=== PATIENT | male | born 1950 | race Caucasian/White ===

== ENCOUNTER 2017-07-24 08:10 | Inpatient (IN) | payer MEDICARE, BC ==
[~2017-07-24] VITALS: Ht 177.8 cm; Wt 87.7 kg
[~2017-07-24 08:10] MED LIST: ASPI-1265 PO; HCTZ; LISI-222 PO; LOP25T PO; ROSU5TAB4 PO
[2017-07-24] MEDS ORDERED: normal saline 1000ML IV soln IVB ONE ×2 (08:20→09:25)
[2017-07-24] MEDS ORDERED: magnesium 2GM in 50ml NS 50 ML IV ONE (08:30)
[2017-07-24] MEDS: sotalol 80mg tablet PO SCH (08:47)
[2017-07-24 08:56] LABS: BASOPHILS % (AUTO) 0.3 % (0-1); EOSINOPHILS # (AUTO) 0.3 X10'3 (0-0.9); EOSINOPHILS % (AUTO) 3.6 % (0-6); HEMATOCRIT 53.3 % (42.0-52.0); HEMOGLOBIN 17.5 g/dl (14.0-17.9); LYMPHOCYTES # (AUTO) 1.4 X10'3 (1.1-4.8); LYMPHOCYTES % (AUTO) 15.1 % (21-51); MEAN CORPUSCULAR HEMOGLOBIN 30.2 PG (27.0-31.0); MEAN CORPUSCULAR HGB CONC 32.8 % (33.0-36.5); MEAN PLATELET VOLUME 7.2 FL (7.4-10.4); MONOCYTES # (AUTO) 0.7 X10'3 (0-0.9); MONOCYTES % (AUTO) 7.8 % (2-12); NEUTROPHILS % (AUTO) 73.2 % (42-75); PLATELET COUNT 253 X10'3 (140-440); RED BLOOD COUNT 5.79 X10'6 (4.70-6.10); RED CELL DISTRIBUTION WIDTH 15.3 % (11.5-14.5); WHITE BLOOD COUNT 9.6 X10'3 (4.5-11.0)
[2017-07-24 09:18] LABS: ALANINE AMINOTRANSFERASE 57 U/L (12-78); ALBUMIN 3.8 G/DL (3.4-5.0); ALBUMIN/GLOBULIN RATIO 1.2 (1.1-1.5); ALKALINE PHOSPHATASE 58 IU/L (46-116); ANION GAP 5 (8-16); ASPARTATE AMINO TRANSFERASE 34 U/L (10-37); BILIRUBIN,TOTAL 0.6 MG/DL (0.1-1.0); BLOOD UREA NITROGEN 17 MG/DL (7-18); BUN/CREATININE RATIO 13.2 (5.4-32.0); CHLORIDE 100 MMOL/L (99-107); CREATININE 1.29 MG/DL (0.60-1.10); GLUCOSE 149 MG/DL (70-104); LIPASE 258 U/L (73-393); SODIUM 138 MMOL/L (135-145); TOTAL CARBON DIOXIDE 32.6 MMOL/L (24-32); TROPONIN I 0.08 NG/ML (0.0-0.05); eGFR 55 ML/MIN
[2017-07-24 09:27] LABS: CALCIUM 9.3 MG/DL (8.5-10.1)
[2017-07-24] MEDS ORDERED: aspirin 325mg tablet PO ONE (10:05)
[2017-07-24] MEDS ORDERED: enoxaparin 100mg/ml syringe SUBCUT ONE (10:05)
[2017-07-24 11:12] LABS: CLARITY,URINE Clear (Clear); COLOR,URINE Yellow (Yellow); GLUCOSE, URINE Negative (Neg); KETONES,URINE Negative (Neg); LEUKOCYTE ESTERASE ,URINE Negative (Neg); NITRITES, URINE Negative (Neg); OCCULT BLOOD,URINE Negative (Neg); PROTEIN,URINE Negative (Neg); UROBILINOGEN,URINE 0.2 E.U/dL (0.2-1.0)
[2017-07-24 11:17] LABS: UA COLLECTION TYPE URINAL
[2017-07-24 12:35] VITALS: BP 113/82
[2017-07-24] MEDS ORDERED: mag hydrox/Alum hydrox/simeth 30ml oral suspension PO PRN (12:35)
[2017-07-24] MEDS: enoxaparin 40mg/0.4ml syringe SUBCUT SCH (12:35)
[2017-07-24] MEDS ORDERED: ondansetron/PF 4mg/2ml inj IV PRN (12:35)
[2017-07-24] MEDS ORDERED: HYDROcodone/acetaminophen 10/325mg tab PO PRN (12:35)
[2017-07-24] MEDS ORDERED: magnesium hydroxide 30ml (MOM) UD suspension PO PRN (12:35)
[2017-07-24] MEDS ORDERED: acetaminophen 325mg tablet PO PRN ×2 (12:35)
[2017-07-24] MEDS ORDERED: HYDROcodone/acetaminophen 5mg/325mg tablet PO PRN (12:35)
[2017-07-24] MEDS: normal saline 1000ml 1,000 ML IV SCH ×2 (12:59→22:35)
[2017-07-24 15:00] VITALS: BP 103/73
[2017-07-24] MEDS ORDERED: ATOR80TA PO (15:19)
[2017-07-24] MEDS ORDERED: LISI-643 PO (15:19)
[2017-07-24] MEDS ORDERED: GLIM1TAB46 PO (15:19)
[2017-07-24] MEDS ORDERED: HYDR25TA4 PO (15:19)
[2017-07-24 19:00] VITALS: BP 126/79
[2017-07-24 20:00] VITALS: BP 126/79
[2017-07-24] MEDS: docusate sod 100mg capsule PO SCH (20:06)
[2017-07-24] MEDS ORDERED: temazepam 15mg capsule PO PRN (21:00)
[2017-07-24 23:00] VITALS: BP 119/69
[2017-07-25 00:31] VITALS: BP 119/69
[2017-07-25 03:00] VITALS: BP 116/63
[2017-07-25 06:06] LABS: BASOPHILS # (AUTO) 0.1 X10'3 (0-0.2); BASOPHILS % (AUTO) 0.7 % (0-1); EOSINOPHILS # (AUTO) 0.5 X10'3 (0-0.9); EOSINOPHILS % (AUTO) 6.4 % (0-6); HEMATOCRIT 44.2 % (42.0-52.0); HEMOGLOBIN 14.9 g/dl (14.0-17.9); LYMPHOCYTES # (AUTO) 2.2 X10'3 (1.1-4.8); LYMPHOCYTES % (AUTO) 27.4 % (21-51); MEAN CORPUSCULAR HEMOGLOBIN 30.9 PG (27.0-31.0); MEAN CORPUSCULAR HGB CONC 33.7 % (33.0-36.5); MEAN CORPUSCULAR VOLUME 91.5 FL (78-98); MEAN PLATELET VOLUME 7.2 FL (7.4-10.4); MONOCYTES # (AUTO) 0.6 X10'3 (0-0.9); MONOCYTES % (AUTO) 8.1 % (2-12); NEUTROPHILS # (AUTO) 4.6 X10'3 (1.8-7.7); NEUTROPHILS % (AUTO) 57.4 % (42-75); PLATELET COUNT 223 X10'3 (140-440); RED BLOOD COUNT 4.83 X10'6 (4.70-6.10); RED CELL DISTRIBUTION WIDTH 15.4 % (11.5-14.5)
[2017-07-25 06:13] LABS: INR 1.1 INR; PROTHROMBIN TIME 10.9 SECONDS (9.0-12.0)
[2017-07-25 06:57] LABS: ALBUMIN 2.8 G/DL (3.4-5.0); ANION GAP 7 (8-16); BLOOD UREA NITROGEN 14 MG/DL (7-18); BUN/CREATININE RATIO 14.6 (5.4-32.0); CHLORIDE 106 MMOL/L (99-107); CREATININE 0.96 MG/DL (0.60-1.10); GLUCOSE 98 MG/DL (70-104); MAGNESIUM 1.9 MG/DL (1.5-2.4); POTASSIUM 3.6 MMOL/L (3.5-5.1); SODIUM 141 MMOL/L (135-145); TOTAL CARBON DIOXIDE 27.9 MMOL/L (24-32); eGFR 78 ML/MIN
[2017-07-25 07:00] VITALS: BP 137/81
[2017-07-25] MEDS: sotalol 80mg tablet PO SCH (07:24)
[2017-07-25] MEDS: docusate sod 100mg capsule PO SCH (07:31)
[2017-07-25] MEDS: enoxaparin 40mg/0.4ml syringe SUBCUT SCH (07:31)
[2017-07-25] MEDS ORDERED: aspirin 81mg tab.chew PO SCH (08:00)
[2017-07-25] MEDS: normal saline 1000ml 1,000 ML IV SCH (08:35)
[2017-07-25 15:00] VITALS: BP 154/95
[2017-07-25] MEDS ORDERED: apixaban 5mg tablet PO SCH (19:00)
[2017-07-25] MEDS ORDERED: APIX5TAB3 PO (20:03)
== END 2017-07-25 21:03 | disposition home or self-care (01) | DRG 309 ==
LOC: ER 08:10 → ED HOLD 10:22 → PCU 3S 12:30
PROVIDERS: ADMIT Family Medicine; ATTEND Emergency Medicine Emergency Medical Services
DX: I48.91 Unspecified atrial fibrillation (principal); N17.9 Acute kidney failure, unspecified; Z95.1 Presence of aortocoronary bypass graft; I25.10 Atherosclerotic heart disease of native coronary artery without angina pectoris; Z79.01 Long term (current) use of anticoagulants; Z79.82 Long term (current) use of aspirin; Z79.84 Long term (current) use of oral hypoglycemic drugs; Z79.899 Other long term (current) drug therapy; Z88.8 Allergy status to other drugs, medicaments and biological substances
CPT/HCPCS: 36415; 70450; 70544; 70547; 70551; 71045; 80048; 80053; 81003; 82948; 83690; 83735; 83880; 84484; 85025; 85610; 93005; 93306; 93880; 96365; 97116; 97161; 99285; J1650; J3475; J7030

== ENCOUNTER 2020-02-14 13:42 | Emergency (ER) | payer MEDICARE, BC ==
[~2020-02-14] VITALS: Ht 177.8 cm; Wt 65.0 kg
[~2020-02-14 13:42] MED LIST changes: +AMA1T PO; +APIX5TAB3 PO; +ATOR80TA PO; -HCTZ; +HYDR25TA4 PO; +LIDOcaine 1% W/epiNEPHrine 1:200,000 10ml vial ONE; -LISI-222 PO; +LISI-643 PO; -ROSU5TAB4 PO
[2020-02-14 13:51] VITALS: BP 138/96
[2020-02-14] MEDS ORDERED: TETanus/Pertussis (Acell)/Diphther VAC/PF (Tdap-Adult) 0.5ml syringe IMVAC ONE (15:00)
[2020-02-14] MEDS ORDERED: ipratropium/albuterol 3ml nebule NEB ONE (15:35)
[2020-02-14] MEDS ORDERED: SULF1TAB49 PO (17:21)
== END 2020-02-14 17:40 | disposition home or self-care (01) ==
LOC: ER 13:43
DX: S61.011A Laceration without foreign body of right thumb without damage to nail, initial encounter (principal); I48.91 Unspecified atrial fibrillation; I25.10 Atherosclerotic heart disease of native coronary artery without angina pectoris; Z95.1 Presence of aortocoronary bypass graft; Z79.82 Long term (current) use of aspirin; Z79.01 Long term (current) use of anticoagulants; Z79.899 Other long term (current) drug therapy
CPT/HCPCS: 12002; 73140; 90471; 90715; 99283